=== PATIENT | male | born 1955 | race Caucasian/White ===

== ENCOUNTER → 2020-12-17 13:38 | Outpatient (CLI) | payer OTHER, SELFPAY ==
--- NOTE | ~2020-12-17 | US_ITS ---
EXAMINATION: US breast LT limited HISTORY: Tender palpable lump in the subareolar left breast TECHNIQUE: Limited left breast ultrasound was performed. FINDINGS: There are findings in the subareolar breast consistent with gynecomastia. No suspicious cys tic or solid mass is identified. IMPRESSION: Mild gynecomastia. BI-RADS Category 2: Benign finding(s). Reviewed, dictated and finalized at location A. [employer] MACHINE OPERATOR
--- NOTE | ~2020-12-17 | US_ITS ---
EXAMINATION: US soft tissue head and neck EXAM DATE: 12/17/2020 14:10 INDICATION: Neck mass, Gynecomastia. TECHNIQUE: Multiple grayscale and Doppler images of the right neck palpable abnormality were obtained (by a technologist who performed the scan) and subsequently reviewed. There is no prior study for c omparison. FINDINGS: There are right cervical heterogeneous masses, possibly within the parotid gland, measuring 1.9 x 1.8 x 2.1 cm and 1.7 x 1.3 x 1.8 cm. Differential diagnosis includes pathologically enlarged lymph nodes which can be intraparotid (from metastatic disease or infection), salivary gland neoplasm. Recommend CT neck for further evaluation. IMPRESSION: 2 complex cystic right cervical masses most likely pathological lymphadenopathy. Recommen d CT scan neck with contrast. Reviewed, dictated and finalized at location B. FARMER IMPRESSION: 2 complex cystic right cervical masses most likely pathological lym phadenopathy. Recommend CT scan neck with contrast.
== END ==
PROVIDERS: PCP Family Medicine; Visit Provider Family Medicine
DX: N62 Hypertrophy of breast (principal); R22.1 Localized swelling, mass and lump, neck
CPT/HCPCS: 76536; 76642

== ENCOUNTER → 2020-12-25 09:50 | Outpatient (CLI) | payer OTHER, SELFPAY ==
--- NOTE | ~2020-12-25 | CT_ITS ---
EXAMINATION: CT soft tissue neck w con DATE: 12/25/2020 10:19 INDICATION: Right neck mass. TECHNIQUE: Computed tomography (CT) of the neck was performed with 75 mL Omnipaque-350 intravenous co ntrast. Automated exposure control and iterative reconstruction technique were employed. The dose-delmis gth product was 439.85 mGy-cm. COMPARISON: Ultrasound 12/17/2020 FINDINGS: There is mild emphysema. There is mild scarring at the lung apices. There are no pathologic ally enlarged lymph nodes. There is plaque in the proximal internal carotid arteries with <50% stenos is relative to normal distal artery lumen diameters. There are 2 masses in superficial right parotid gland with the larger measuring 2.2 x 2.0 cm. There is mild mucosal thickening in the paranasal sinus es. There are surgical changes of the paranasal sinuses. The mastoid air cells are normal. The orbits are normal. There is severe cervical spondylosis. IMPRESSION: 1. Two masses in the superficial right parotid gland with the larger measuring 2.2 x 2.0 cm. The diff erential diagnosis includes benign mixed tumors, Warthin tumors, and less likely primary malignancy o r kylie metastatic disease. Ultrasound-guided fine-needle aspiration is recommended. Reviewed, dictated and finalized at location A. [place] BANKER IMPRESSION: 1. Two masses in the superficial right parotid gland with the larger measuring 2.2 x 2.0 cm. The differential diagnosis includes benign mixed tumors, Warthin tumors, and less likely primary malignancy or kylie metastatic disease. Ultraso und-guided fine-needle aspiration is recommended.
[2020-12-25 10:08] LABS: Estimated Glomerular Filt Rate > 60
== END ==
PROVIDERS: PCP Family Medicine; Visit Provider Family Medicine
DX: R59.0 Localized enlarged lymph nodes (principal)
CPT/HCPCS: 70491; Q9967